=== PATIENT | female | born 1940 | race Caucasian/White ===

== ENCOUNTER → 2022-01-17 | Outpatient (CLI) | payer OTHER | LOC: WCC 13:15 | DX: S81.802A Unspecified open wound, left lower leg, initial encounter (principal); I48.91 Unspecified atrial fibrillation; R60.1 Generalized edema; I10 Essential (primary) hypertension; V89.2XXA Person injured in unspecified motor-vehicle accident, traffic, initial encounter | CPT/HCPCS: 87070; 87205; G0463 ==

== ENCOUNTER → 2022-01-31 | Outpatient (CLI) | payer OTHER, MEDICARE | LOC: WCC 07:50 | DX: T81.33XA Disruption of traumatic injury wound repair, initial encounter (principal); V89.2XXA Person injured in unspecified motor-vehicle accident, traffic, initial encounter; R60.1 Generalized edema; E66.01 Morbid (severe) obesity due to excess calories; I48.91 Unspecified atrial fibrillation; I10 Essential (primary) hypertension ==

== ENCOUNTER → 2022-02-09 | Outpatient (CLI) | payer OTHER, MEDICARE | LOC: WCC 09:22 | DX: S81.802D Unspecified open wound, left lower leg, subsequent encounter (principal); R60.1 Generalized edema; E66.01 Morbid (severe) obesity due to excess calories; I48.91 Unspecified atrial fibrillation; I10 Essential (primary) hypertension; M19.90 Unspecified osteoarthritis, unspecified site; V89.2XXD Person injured in unspecified motor-vehicle accident, traffic, subsequent encounter; Z88.0 Allergy status to penicillin ==

== ENCOUNTER → 2022-02-20 | Outpatient (CLI) | payer MEDICARE | LOC: WCC 09:00 | DX: S81.802A Unspecified open wound, left lower leg, initial encounter (principal); E66.01 Morbid (severe) obesity due to excess calories; I48.91 Unspecified atrial fibrillation; I10 Essential (primary) hypertension; R60.0 Localized edema; V89.2XXA Person injured in unspecified motor-vehicle accident, traffic, initial encounter; Z88.0 Allergy status to penicillin | CPT/HCPCS: 73718 ==

== ENCOUNTER → 2022-03-02 | Outpatient (CLI) | payer OTHER, MEDICARE | LOC: WCC 07:49 | PROC: 0KBT0ZZ Excision of Left Lower Leg Muscle, Open Approach (ICD-10-PCS; principal; 2022-03-02) | DX: S81.802A Unspecified open wound, left lower leg, initial encounter (principal); E66.01 Morbid (severe) obesity due to excess calories; I48.91 Unspecified atrial fibrillation; L97 Non-pressure chronic ulcer of lower limb, not elsewhere classified; I10 Essential (primary) hypertension; M19.90 Unspecified osteoarthritis, unspecified site; Z79.899 Other long term (current) drug therapy; V89.2XXA Person injured in unspecified motor-vehicle accident, traffic, initial encounter; Z88.0 Allergy status to penicillin ==

== ENCOUNTER → 2022-03-09 | Outpatient (CLI) | payer OTHER, MEDICARE | LOC: WCC 09:11 | DX: L97.825 Non-pressure chronic ulcer of other part of left lower leg with muscle involvement without evidence of necrosis (principal); R60.1 Generalized edema; E66.01 Morbid (severe) obesity due to excess calories; I48.91 Unspecified atrial fibrillation; I10 Essential (primary) hypertension; V89.2XXA Person injured in unspecified motor-vehicle accident, traffic, initial encounter ==

== ENCOUNTER → 2022-03-30 | Outpatient (CLI) | payer OTHER, MEDICARE | END | disposition home or self-care (01) | LOC: WCC 07:49 | DX: S81.802A Unspecified open wound, left lower leg, initial encounter (principal); V89.2XXA Person injured in unspecified motor-vehicle accident, traffic, initial encounter; R60.1 Generalized edema; I48.91 Unspecified atrial fibrillation; I10 Essential (primary) hypertension; Z79.899 Other long term (current) drug therapy ==

== ENCOUNTER → 2022-05-04 | Outpatient (CLI) | payer OTHER, MEDICARE | END | disposition home or self-care (01) | LOC: WCC 09:50 | DX: S81.802A Unspecified open wound, left lower leg, initial encounter (principal); V89.2XXA Person injured in unspecified motor-vehicle accident, traffic, initial encounter; I89.0 Lymphedema, not elsewhere classified; I10 Essential (primary) hypertension; I48.91 Unspecified atrial fibrillation; E66.01 Morbid (severe) obesity due to excess calories; Z79.899 Other long term (current) drug therapy; Z68.41 Body mass index [BMI] 40.0-44.9, adult ==

== ENCOUNTER → 2022-05-25 | Outpatient (CLI) | payer OTHER, MEDICARE | END | disposition home or self-care (01) | LOC: WCC 07:52 | PROC: 0JBP0ZZ Excision of Left Lower Leg Subcutaneous Tissue and Fascia, Open Approach (ICD-10-PCS; principal; 2022-05-25) | DX: L97.829 Non-pressure chronic ulcer of other part of left lower leg with unspecified severity (principal); E66.01 Morbid (severe) obesity due to excess calories; I48.91 Unspecified atrial fibrillation; I10 Essential (primary) hypertension; I89.0 Lymphedema, not elsewhere classified ==

== ENCOUNTER → 2022-06-08 | Outpatient (CLI) | payer OTHER, MEDICARE | LOC: WCC 09:06 | DX: S81.802A Unspecified open wound, left lower leg, initial encounter (principal); R60.1 Generalized edema; E66.01 Morbid (severe) obesity due to excess calories; I48.91 Unspecified atrial fibrillation; I10 Essential (primary) hypertension; I89.0 Lymphedema, not elsewhere classified; Z68.41 Body mass index [BMI] 40.0-44.9, adult; V89.2XXA Person injured in unspecified motor-vehicle accident, traffic, initial encounter ==

== ENCOUNTER → 2022-06-22 | Outpatient (CLI) | payer OTHER, MEDICARE | LOC: WCC 08:32 | DX: L97.825 Non-pressure chronic ulcer of other part of left lower leg with muscle involvement without evidence of necrosis (principal); R60.1 Generalized edema; E66.01 Morbid (severe) obesity due to excess calories; I48.91 Unspecified atrial fibrillation; I10 Essential (primary) hypertension; I89.0 Lymphedema, not elsewhere classified; Z68.41 Body mass index [BMI] 40.0-44.9, adult; Z88.0 Allergy status to penicillin; Z79.899 Other long term (current) drug therapy; V89.2XXA Person injured in unspecified motor-vehicle accident, traffic, initial encounter ==

== ENCOUNTER → 2022-07-06 | Outpatient (CLI) | payer OTHER, MEDICARE | LOC: WCC 08:50 | DX: L97 Non-pressure chronic ulcer of lower limb, not elsewhere classified (principal); R60.1 Generalized edema; E66.01 Morbid (severe) obesity due to excess calories; I48.91 Unspecified atrial fibrillation; I10 Essential (primary) hypertension; I89.0 Lymphedema, not elsewhere classified; V89.2XXD Person injured in unspecified motor-vehicle accident, traffic, subsequent encounter | CPT/HCPCS: G0463 ==